=== PATIENT | female | born 1950 | race Caucasian/White ===

== ENCOUNTER → 2017-04-30 | Day surgery (SDC) | payer MEDICARE ==
[~2017-04-30] VITALS: Ht 165.1 cm; Wt 77.2 kg
[~2017-04-30] MED LIST: ALPR2TAB3 PO; BONI150T PO; CLINDAMYCIN PHOS 900 MG/6 ML VIAL ONE; LACTATED RINGER'S 1000 ML INJ 1,000 ML ONE; LIDOCAINE 1%/EPINEPHrine 1:100,000 SOLN 30 ML VIAL ONE; MULTTAB67 PO; ONDANSETRON HCL 4 MG/2 ML VIAL IV PUSH ONE; PREV30CA11 PO; PROPOFOL 200 MG/20 ML AMP IV ONE; REME45TA PO; SIMV5TAB3 PO; SODIUM CHLORIDE 0.9% INJ 50 ML ONE; SYNT25TA PO
[2017-04-30 09:04] VITALS: BP 116/59; PULSE 74; RESP 20; TEMP 98.3; O2SAT 94
[2017-04-30 11:30] VITALS: PULSE 90
[2017-04-30 12:00] VITALS: PULSE 51; TEMP 97.8
[2017-04-30 12:40] VITALS: BP 126/64; PULSE 55; RESP 14; O2SAT 97
--- NOTE | 2017-04-30 18:21 | EKG ---
Date Performed: 04/30/2017 Time Performed: 09:27:12 PTAGE: 66 years EKG: Sinus bradycardia. Poor R wave progression - probable normal variant Low QRS voltages in pr ecordial leads Borderline ECG NO PREVIOUS TRACING DOCTOR: Conrado Franco Interpretating Date/Time 04/30/2017 18:21:20
--- NOTE | 2017-05-01 06:29 | MP ---
cc: SHEKHAR PRADO M.D. DATE OF OPERATION April 30, [address] Shekhar Prado PREOPERATIVE DIAGNOSES 1. Chronic right submandibular sialoadenitis. 2. Right submandibular sialolithiasis. POSTOPERATIVE DIAGNOSES 1. Chronic right submandibular sialoadenitis. 2. Right submandibular sialolithiasis. OPERATION PERFORMED 1. Intraoral sialolithotomy with removal of Sebastian's duct stone. 2. Intraoral drainage of submandibular salivary gland abscess. INDICATIONS Documented in the history and physical. DESCRIPTION OF OPERATION The patient was taken to OR #2 and placed in the supine position. Following induction of general anesthesia and intubation, a shoulder roll and a Baxter mouth gag were put in place. The tongue was grasped anteriorly using a penetrating towel clip through the midline raphe and was retracted leftward and superiorly exposing the floor of mouth. Location the stone in the Sebastian's duct was immediately identifiable. This area was injected with 3 mL of 1% Xylocaine with epinephrine 1:100,000. Using a 15 blade scalpel incision was made immediately over the midline of the stone which was impacted longitudinally in the Independence's duct. This was approximately 1 cm in length. Then using blunt dissection the sublingual soft tissue was dissected down to the level of the stone. The stone itself was then removed in a piecemeal fashion and passed off the field for specimen. This allowed drainage of purulent material from the duct and from the salivary gland. This was expressed by compression of the submandibular area. Approximately 10 mL of yellow-brown pus was expressed. The duct was then irrigated with 100 mL of saline using syringe and a size 18 Angiocath. No further stones were seen to flow from the salivary gland ducts. At this point the Baxter mouth gag was removed and the procedure was terminated. The incision in the floor mouth was not closed. The patient was taken to Recovery in good condition. There were no complications. Blood loss was less than 10 mL. MD STEVEN Montelongo/MICHELLE /2:11 PM /6:23 AM
== END | disposition home or self-care (01) ==
LOC: PHSDC 08:31
PROVIDERS: ATTEND Otolaryngology
DX: K11.23 Chronic sialoadenitis (principal); K11.5 Sialolithiasis; Z01.810 Encounter for preprocedural cardiovascular examination
CPT/HCPCS: 00100; 42330; 88300; 93005; J2405; J3010; J7120; 88305

== ENCOUNTER 2017-12-10 08:55 | Observation (INO) | payer MEDICARE ==
[~2017-12-10] VITALS: Ht 166.4 cm; Wt 85.2 kg
[~2017-12-10 08:55] MED LIST changes: -BONI150T PO; -CLINDAMYCIN PHOS 900 MG/6 ML VIAL ONE; -LACTATED RINGER'S 1000 ML INJ 1,000 ML ONE; -ONDANSETRON HCL 4 MG/2 ML VIAL IV PUSH ONE; +OXYMETAZOLINE HCL 0.05% 15 ML NASAL SPRAY ONE; -PREV30CA11 PO; -PROPOFOL 200 MG/20 ML AMP IV ONE; -SODIUM CHLORIDE 0.9% INJ 50 ML ONE
[2017-12-10] MEDS ORDERED: SODIUM CHLORID 0.9% 500 ML IV PRN (09:15)
[2017-12-10] MEDS ORDERED: METOPROLOL TARTRATE 25 MG TAB PO PRN (09:15)
[2017-12-10] MEDS ORDERED: CHLORHEXIDINE GLUCONATE 2 % 1 PACK (2 CLOTHS) TOPICAL PRN (09:15)
[2017-12-10] MEDS ORDERED: INSULIN HUMAN REGULAR 1,000 UNITS/10 ML VIAL SQ PRN (09:15)
[2017-12-10] MEDS ORDERED: POVIDONE IODINE 5% (ANTISEPSIS KIT) 4 APPLICATIONS EACH NARE PRN (09:15)
[2017-12-10] MEDS ORDERED: LACTATED RINGER'S 1000 ML IV PRN (09:15)
[2017-12-10] MEDS ORDERED: CLINDAMYCIN 600 MG/NS PREMIX 50 ML IV SCH (09:15)
[2017-12-10] MEDS ORDERED: VITA250T3 PO (11:23)
[2017-12-10] MEDS ORDERED: FAMOTIDINE 20 MG/2 ML VIAL ONE (12:06)
[2017-12-10] MEDS ORDERED: MIDAZOLAM HCL 2 MG/2 ML VIAL ONE (12:06)
[2017-12-10] MEDS ORDERED: fentaNYL CITRATE 250 MCG/5 ML AMP ONE (13:54)
[2017-12-10 15:49] VITALS: PULSE 106
[2017-12-10] MEDS: LACTATED RINGER'S 1000 ML INJ 1,000 ML IV SCH (16:15)
[2017-12-10] MEDS ORDERED: ONDANSETRON HCL 4 MG/2 ML VIAL IV PUSH PRN (16:15)
[2017-12-10] MEDS ORDERED: *Lactated Ringer's INJ 1,000 ML ONE (16:21)
[2017-12-10 17:30] VITALS: BP 120/61; PULSE 59; RESP 20; TEMP 96.7; O2SAT 97
[2017-12-10 18:06] VITALS: O2SAT 96
[2017-12-10 20:00] VITALS: BP 120/57; PULSE 57; RESP 17; TEMP 96.8; O2SAT 98; O2SAT 99
[2017-12-10] MEDS: ACETAMINOPHEN/HYDROcodone 325 MG/5 MG TAB PO PRN (20:30)
[2017-12-10] MEDS ORDERED: MIRTAZAPINE 15 MG TAB PO SCH (21:00)
[2017-12-10] MEDS: CLINDAMYCIN 600 MG/NS PREMIX 50 ML IV SCH (23:15)
[2017-12-10] MEDS: ALPRAZolam 1 MG TAB PO PRN (23:29)
[2017-12-10 23:35] VITALS: BP 94/61; PULSE 62; RESP 18; O2SAT 97
[2017-12-11] VITALS: TEMP 97.2
[2017-12-11] MEDS: ACETAMINOPHEN/HYDROcodone 325 MG/5 MG TAB PO PRN ×3 (00:46→08:28)
[2017-12-11 04:21] VITALS: BP 89/53; PULSE 56; RESP 20; TEMP 99.3; O2SAT 94
[2017-12-11 04:25] VITALS: BP 101/64
[2017-12-11] MEDS: CLINDAMYCIN 600 MG/NS PREMIX 50 ML IV SCH (04:26)
[2017-12-11] MEDS: LACTATED RINGER'S 1000 ML INJ 1,000 ML IV SCH (04:26)
[2017-12-11] MEDS ORDERED: LEVOTHYROXINE SODIUM 25 MCG TAB PO SCH (06:00)
[2017-12-11] MEDS: ALPRAZolam 1 MG TAB PO PRN (08:26)
[2017-12-11 08:30] VITALS: O2SAT 96
[2017-12-11] MEDS ORDERED: MULTIVITAMIN TAB PO SCH (09:00)
[2017-12-11] MEDS ORDERED: PRAVASTATIN SOD 10 MG TAB PO SCH (09:00)
[2017-12-11] MEDS ORDERED: ASCORBIC ACID 500 MG TAB PO SCH (09:00)
[2017-12-11 09:34] VITALS: BP 91/53; PULSE 61; RESP 16; TEMP 98.1; O2SAT 98
[2017-12-11] MEDS ORDERED: GLYCOPYRROLATE 1 MG/5 ML SYRINGE IV PUSH ONE (12:00)
[2017-12-11] MEDS ORDERED: ePHEDrine/NS 25 MG/5 ML SYRINGE IV ONE (12:00)
[2017-12-11] MEDS ORDERED: NEOSTIGMINE 3 MG/3 ML SYR IV ONE (12:00)
[2017-12-11] MEDS ORDERED: DEXAMETHASONE SOD PHOS 4 MG/ML VIAL IV ONE (12:00)
[2017-12-11] MEDS ORDERED: PROPOFOL 200 MG/20 ML AMP IV ONE (12:00)
[2017-12-11] MEDS ORDERED: ONDANSETRON HCL 4 MG/2 ML VIAL IV PUSH ONE (12:00)
[2017-12-11] MEDS ORDERED: ROCURONIUM INJ 50 MG/5 ML SYRINGE IV PUSH ONE (12:00)
[2017-12-11] MEDS ORDERED: LIDOCAINE HCL 1% PF 5 ML SYRINGE OTHER ONE (12:00)
--- NOTE | 2018-01-10 08:32 | MP ---
cc: SHEKHAR PLASENCIA MD DATE OF SURGERY 12/10/[address] Shekhar plasencia PREOPERATIVE DIAGNOSIS 1. Chronic pansinusitis 2. Nasal airway obstruction 3. Nasal septal deviation 4. Hypertrophy of inferior turbinates POSTOPERATIVE DIAGNOSIS 1. Chronic pansinusitis 2. Nasal airway obstruction 3. Nasal septal deviation 4. Hypertrophy of inferior turbinates OPERATION PERFORMED 1. Open repair nasal septal fracture 2. Bilateral submucosal resection of inferior turbinates 3. Bilateral endoscopic total ethmoidectomy 4. Bilateral endoscopic maxillary antrostomy with debridement of maxillary sinus contents 5. Bilateral endoscopic exploration of frontal sinus ducts 6. Bilateral endoscopic sphenoidotomy with removal of sphenoid sinus tissue 7. Bilateral endoscopic debridement of endonasal polyps INDICATIONS The indications are documented in the history and physical. DESCRIPTION OF OPERATION The patient was taken to OR #2 placed in the supine position. Following induction of general anesthesia and intubation, the nose was packed bilaterally with cotton pledgets saturated in 0.05% Oxymetazoline. The nasal septal mucosa and inferior turbinates are injected with a total of 8 mL of 1% Xylocaine with epinephrine 1:100,000. She was then prepped and draped for surgery. Packing was removed and a hemitransfixion incision was made in the left nasal vestibule and through this incision, the mucosa of the septum was elevated bilaterally as far as the junction of the bony and cartilaginous septum. This exposed the quadrangular cartilage which showed evidence of old cartilaginous fracture with comminuted fragments extending in the nasal airway bilaterally, accumulative area of 2 x 2 cm was removed in a piecemeal fashion preserving 1.5 cm dorsal and caudal cartilaginous struts. When this was completed, the mucosa was elevated from the bony septum and the maxillary crest and these were removed using Edward Mays forceps and [place] septal forceps on the bony septum. The maxillary crest was removed using a 6-mm Clifton chisel preserving the anterior nasal spine. The incision was then closed with a running suture of 4-0 chromic and the mucosal layers of the septum were approximated to each other with a quilting stitch of 4-0 plain gut. The inferior turbinates were addressed next. They were fractured out medially and stab incisions were opened along their inferior surfaces. Through these incisions, the submucosal soft tissue was reduced using a curette preserving the conchal bone. The incisions were then cauterized using the suction Bovie at 35 stack and the remnants of the inferior turbinates were relateralized to the lateral nasal wall. At this point forward, the operation was completed using endoscopic visualization. There was generous accumulation of polypoid tissue filling the nasal vault prolapsing from the middle and superior turbinates. These polyps were addressed first using the endoscopic 0 degrees scope. Additional injections of lidocaine and epinephrine were made into the polypoid tissue. This was then removed using the power microdebrider. A few fragments were obtained during this process and were included in the specimens labeled left and right sinus contents. This allowed access to the anatomy of the lateral nasal mar. Additional injections then were made into the attachments of the middle turbinates, the uncinate processes and the ethmoid cells. The left side was addressed first beginning with amputation of the middle turbinates seen through cutting Blakesley forceps and the power microdebrider. This was followed by removal of the uncinate process and exoneration of the anterior and posterior ethmoids using blunt and power dissection. This was carried back as far as the rostrum of the sphenoid. The sphenoid was then also penetrated and this cavity was entered and was debrided of thick polypoid tissue and mucopurulent material. Next, the left maxillary sinus cavity was addressed. The ostium was probed using a 3-mm olive tipped suction and using Stammberger forceps and power debrider, the cavity ostium was enlarged, then the cavity itself was debrided of heavy burden of polypoid tissue and mucopurulent material. This was debrided and irrigated from the sinus cavity. At this point, the left cavities were then irrigated and packed with cotton pledgets saturated in Oxymetazoline. These remained in place while the right side was then operated in the same fashion beginning with removal of the middle turbinate, the uncinectomy and exoneration of anterior and posterior ethmoid cells. The right sphenoid was also entered through the posterior ethmoids. It was debrided of polypoid tissue and mucopurulent material and the maxillary ostium was enlarged with the Stammberger forceps and the power debrider and the cavity was debrided of thick polypoid tissue. This side was then also irrigated and packed with the cotton pledgets. These remained in place while the frontal duct dilations were completed using the Acclarent balloon technique. The guidewire was advanced into the left frontal sinus and the balloon was advanced over the wire. The balloon was inflated to a pressure of 12 atmospheres. The superior limit within the frontal sinus also at the middle point of the duct and inferiorly at the junction with the ethmoid cavities. The balloon was removed and the cavity was inspected. Fragments of bone and polypoid tissue were then debrided from this area using a 70 degrees scope and upbiting Blakesley forceps. The right frontal was then operated in the same fashion. All packing was then removed from the nose was all cavities were once again irrigated with chilled saline and were suctioned. The sinus cavities were filled with Stammberger sinus foam and the inferior nasal vault was filled with 5.5 cm rapid rhino packs each inflated with 5 mL of air and the procedure was terminated. The patient was reversed from anesthesia and taken to recovery in good condition. There were no complications. The blood loss was 300 mL. MD STEVEN Montelongo/JUAN /7:19 AM /8:09 AM
== END 2017-12-11 11:10 | disposition home or self-care (01) ==
LOC: PHSDC 08:55 → PH3B 17:30
PROVIDERS: ADMIT Otolaryngology; ATTEND Otolaryngology
DX: J34.89 Other specified disorders of nose and nasal sinuses (principal); J32.4 Chronic pansinusitis; J34.2 Deviated nasal septum; J34.3 Hypertrophy of nasal turbinates; J32.8 Other chronic sinusitis; J33.0 Polyp of nasal cavity; R09.81 Nasal congestion; I95.9 Hypotension, unspecified; F41.9 Anxiety disorder, unspecified; H61.20 Impacted cerumen, unspecified ear
CPT/HCPCS: 00160; 30140; 30520; 31267; 31276; 31288; 88304; 88311; 94762; 96360; 96361; G0378; J1100; J2250; J2405; J2710; J3010; J7120; 88305